=== PATIENT | female | born 1985 | race Caucasian/White ===

== ENCOUNTER 2016-11-29 21:58 | Emergency (ER) | payer BC ==
[~2016-11-29] VITALS: Ht 170.2 cm; Wt 101.6 kg
--- NOTE | ~2016-11-29 | EKG ---
[address] [address] ELECTROCARDIOGRAM REPORT Name: DC JACOBO Room #: DEP [facility]#: [id number] Admission: 11/29/16 Attend Phys: Discharge: 11/29/16 Date of : 81 Report #: [id number] THIS REPORT FOR: //name// [facility] ED Test Date: 2016-11-29 Test Time: 21:59:20 Pat Name: DC JACOBO Department: Room: Gender: F Pcb Designer: ALY : 1985 Requested By: Juan Francisco Wilde Order Number: [id number] MD: Ankush Lockett Measurements Intervals [place] Rate: 104 P: 52 MD: 158 QRS: 39 QRSD: 105 T: -10 QT: 355 QTc: 467 Interpretive Statements Sinus tachycardia Borderline T abnormalities, inferior leads No previous ECG available for comparison Electronically Signed On 11-30-2016 8:57:28 CDT by Ankush Lockett [email or web address] <ELECTRONICALLY SIGNED> By: Ankush Lockett MD, [facility] 11/30/16 [id number] [id number] Ankush Lockett MD, FACC /EPI
[~2016-11-29 21:58] MED LIST: APAP500 PO; LANOLIN HYDROUS28 GM TOP; NORCO 5-325 TA1 EACH PO; PRENATAL
[2016-11-29] MEDS ORDERED: NOHOMEMEDICATIONS (22:06)
[2016-11-29 22:10] LABS: HEMATOCRIT 41.4 % (37.0-47.0); HEMOGLOBIN 13.7 gm/dL (12.0-15.0); MCH 29.5 pg (26.0-34.0); MCHC 33.2 g/dL (28.0-37.0); MCV 88.8 fL (80.0-100.0); RBC 4.66 mil/uL (4.20-5.00); RDW 12.1 % (10.5-14.5); WBC 9.3 thou/uL (4.0-11.0)
[2016-11-29 22:18] LABS: CALCIUM 8.6 mg/dL (8.5-10.1); CREATININE 0.9 mg/dL (0.6-1.0); POTASSIUM 3.3 mmol/L (3.5-5.1)
[2016-11-29 22:58] VITALS: BP 121/67
== END 2016-11-29 23:27 | disposition home or self-care (01) ==
LOC: ER 21:58
PROVIDERS: Physician Assistant
DX: I47.1 Supraventricular tachycardia (principal); F17.210 Nicotine dependence, cigarettes, uncomplicated; F10.99 Alcohol use, unspecified with unspecified alcohol-induced disorder

== ENCOUNTER → 2016-12-10 | Outpatient (CLI) | payer BC ==
[~2016-12-10] MED LIST changes: +NOHOMEMEDICATIONS
--- NOTE | ~2016-12-10 | 2DMMODE ---
[facility] [employer] [place] [address] 2 D/M-MODE ECHOCARDIOGRAM Name: DONNELLDC NACHO Room #: REG [facility]#: [id number] Admission: 12/10/16 Attend Phys: Epi Gr Discharge: Date of : 81 Date of Service: 12/10/16 1440 Report #: [id number] THIS REPORT FOR: //name// APPROVED REPORT Study performed: 12/10/2016 12:12:10 EXAM: Comprehensive 2D, Doppler, and color-flow Echocardiogram Patient Location: Out-Patient Status: routine Other Information Study Quality: Good Indications Palpitations 2D Dimensions RVDd: 36.82 mm LVEF(%): 73.30 (>50%) IVSd: 9.30 (7-11mm) LVOT Diam: 19.96 (18-24mm) LVDd: 47.31 mm PWd: 7.72 (7-11mm) Ascending Ao: 28.39 (22-36mm) LVDs: 27.30 (25-40mm) Aortic Root: 28.32 mm Mathur's LVEF: 73.30 % Volumes Left Atrial Volume (Systole) Single Plane 4CH: 34.71 mL Single Plane 2CH: 37.51 mL LA ESV Index: 19.00 mL/m2 Aortic Valve AoV Peak Bert.: 1.45 m/s AO Peak Gr.: 8.45 mmHg LVOT Max P.20 mmHg LVOT Max V: 1.02 m/s BRITT Vmax: 2.20 cm2 Mitral Valve E/A Ratio: 2.2 MV Decel. Time: 231.44 ms MV E Max Bret.: 1.01 m/s MV A Bret.: 0.45 m/s MV PHT: 67.12 ms IVRT: 92.27 ms [facility] [place] [address] 2 D/M-MODE ECHOCARDIOGRAM Name: DC JACOBO Room #: REG [facility] [id number] Admission: 12/10/16 [facility]end Phys: [facility] Dis[facility]: Date of : 81 Date of Service: 12/10/16 1440 Report #: [id number] Pulmonary Vein P Vein S: 0.65 m/s P Vein A: 0.23 m/s P Vein D: 0.41 m/s P Vein A Dur.: 120.0 msec P Vein S/D Ratio: 1.59 Tricuspid Valve TR Peak Bret.: 2.36 m/s RAP Estimate: 5.00 mmHg TR Peak Gr.: 22.27 mmHg PA Pressure: 27.00 mmHg Left Ventricle The left ventricle is normal size. There is normal left ventricular wall thickness. The left ventricular systolic function is normal. The left ventricular ejection fraction is within the normal range. LVEF is 60-65%. The left ventricular diastolic function is normal. Right Ventricle The right ventricle is normal size. The right ventricular systolic function is normal. Atria The left atrium size is normal. The right atrium size is normal. Aortic Valve The aortic valve is normal in structure. No aortic regurgitation is present. There is no aortic valvular stenosis. Mitral Valve The mitral valve is normal in structure. Trace mitral regurgitation. No evidence of mitral valve stenosis. Tricuspid Valve The tricuspid valve is normal in structure. There is trace tricuspid regurgitation. The right atrial pressure is estimated at 5 mmHg. There is trace tricuspid regurgitation. The right atrial pressure is estimated at 5 mmHg. There is no pulmonary hypertension with an estimated PAP of 28 mmHg. Pulmonic Valve The pulmonary valve is normal in structure. There is no pulmonic valvular regurgitation. Great Vessels The aortic root is normal in size. The ascending aorta is normal in [address] [address] 2 D/M-MODE ECHOCARDIOGRAM Name: DC JACOBO Room #: REG [facility]#: [id number] Admission: 12/10/16 Attend Phys: Epi Gr Discharge: Date of : 81 Date of Service: 12/10/16 1440 Report #: [id number] size. IVC is normal in size and collapses >50% with inspiration. Pericardium There is no pericardial effusion. <Conclusion> The left ventricle is normal size. The left ventricular systolic function is normal. The left ventricular diastolic function is normal. The right ventricle is normal size. The left atrium size is normal. The right atrium size is normal. The aortic valve is normal in structure. Trace mitral regurgitation. There is no pericardial effusion. <ELECTRONICALLY SIGNED> By: Matt Levin MD 12/10/16 1440 1440 1440 Matt Levin MD /INF
== END ==
LOC: CV 11:38
DX: R00.2 Palpitations (principal)

== ENCOUNTER → 2016-12-20 | Outpatient (CLI) | payer BC ==
[~2016-12-20] VITALS: Ht 170.2 cm; Wt 101.6 kg
[~2016-12-20] MED LIST changes: +TOPROL XL25 MG PO; +XARELTO20 MG PO
[2016-12-20 07:11] VITALS: BP 112/75
[2016-12-20 07:40] LABS: ABSOLUTE NEUTROPHILS 3.8 thou/uL (1.4-8.2); BASOPHILS 0.5 % (0.0-2.0); EOSINOPHILS 5.1 % (0.0-3.0); HEMATOCRIT 37.7 % (37.0-47.0); HEMOGLOBIN 12.7 gm/dL (12.0-15.0); LYMPHOCYTES 28.1 % (24.0-44.0); MCH 29.8 pg (26.0-34.0); MCHC 33.7 g/dL (28.0-37.0); MCV 88.4 fL (80.0-100.0); MONOCYTES 6.8 % (1.0-8.0); PLATELET COUNT 200 thou/uL (150-400); POLYS 59.5 % (36.0-66.0); RBC 4.27 mil/uL (4.20-5.00); RDW 12.3 % (10.5-14.5); WBC 6.5 thou/uL (4.0-11.0)
[2016-12-20 07:52] LABS: MANUAL DIFF NO
[2016-12-20 07:53] LABS: CALCIUM 8.4 mg/dL (8.5-10.1); CREATININE 0.7 mg/dL (0.6-1.0); POTASSIUM 3.7 mmol/L (3.5-5.1)
[2016-12-20 07:55] LABS: APTT 25.4 Seconds (24.5-32.8); PROTIME 9.9 Seconds (9.3-11.4)
[2016-12-20 07:57] LABS: ALBUMIN 3.3 g/dL (3.4-5.0); TOTAL BILIRUBIN 0.4 mg/dL (<0.1-1.0); TOTAL PROTEIN 6.7 g/dL (6.4-8.2)
== END | disposition home or self-care (01) ==
LOC: CATH 06:30
PROVIDERS: Internal Medicine Cardiovascular Disease
DX: I47.1 Supraventricular tachycardia (principal); Z72.0 Tobacco use; I49.9 Cardiac arrhythmia, unspecified; G43.909 Migraine, unspecified, not intractable, without status migrainosus
CPT/HCPCS: 62110; 62900; 70005

== ENCOUNTER 2019-01-19 09:57 | Emergency (ER) | payer BC ==
[~2019-01-19] VITALS: Ht 172.7 cm; Wt 102.1 kg
[2019-01-19 10:36] LABS: ABSOLUTE NEUTROPHILS 5.7 thou/uL (1.4-8.2); BASOPHILS 0.9 % (0.0-2.0); EOSINOPHILS 2.5 % (0.0-3.0); HEMATOCRIT 42.6 % (37.0-47.0); HEMOGLOBIN 14.2 gm/dL (12.0-15.0); LYMPHOCYTES 23.6 % (24.0-44.0); MCH 29.8 pg (26.0-34.0); MCHC 33.2 g/dL (28.0-37.0); MCV 89.7 fL (80.0-100.0); MONOCYTES 5.1 % (1.0-8.0); PLATELET COUNT 246 thou/uL (150-400); POLYS 67.9 % (36.0-66.0); RBC 4.75 mil/uL (4.20-5.00); RDW 12.5 % (10.5-14.5); WBC 8.5 thou/uL (4.0-11.0)
[2019-01-19] MEDS ORDERED: NORETHINDRONE0.35 MG PO (10:37)
[2019-01-19 10:40] LABS: ANION GAP 9 mmol/L (7-16); BUN 8 mg/dL (7-18); CALCIUM 9.2 mg/dL (8.5-10.1); CHLORIDE 102 mmol/L (98-107); CO2 26 mmol/L (21-32); CREATININE 0.8 mg/dL (0.6-1.0); GLUCOSE 105 mg/dL (74-106); SODIUM 137 mmol/L (136-145)
[2019-01-19 10:46] LABS: ALBUMIN 3.8 g/dL (3.4-5.0); DIRECT BILIRUBIN < 0.1 mg/dL (<0.1-0.3); LIPASE 68 U/L (73-393); SGOT 14 U/L (15-37); SGPT 27 U/L (30-65); TOTAL BILIRUBIN 0.5 mg/dL (<0.1-1.0); TOTAL PROTEIN 7.9 g/dL (6.4-8.2)
[2019-01-19] MEDS ORDERED: BENTYL 20 MG TA20 M1 PO (12:30)
[2019-01-19 12:40] VITALS: BP 108/67
== END 2019-01-19 12:40 | disposition home or self-care (01) ==
LOC: ER 09:57
PROVIDERS: Emergency Medicine
DX: R10.30 Lower abdominal pain, unspecified (principal); G43.909 Migraine, unspecified, not intractable, without status migrainosus; F17.210 Nicotine dependence, cigarettes, uncomplicated; Z88.8 Allergy status to other drugs, medicaments and biological substances

== ENCOUNTER 2019-10-19 19:16 | Emergency (ER) | payer OTHER ==
[~2019-10-19] VITALS: Ht 167.6 cm; Wt 102.1 kg
[~2019-10-19 19:16] MED LIST changes: +BENTYL 20 MG TA20 M1 PO; +NORETHINDRONE0.35 MG PO
[2019-10-19 19:25] VITALS: BP 132/81
[2019-10-19] MEDS ORDERED: IBUPROFEN 800800 M1 PO (19:40)
== END 2019-10-19 20:13 | disposition home or self-care (01) ==
LOC: ER 19:16
DX: S93.601A Unspecified sprain of right foot, initial encounter (principal); G43.909 Migraine, unspecified, not intractable, without status migrainosus; F17.210 Nicotine dependence, cigarettes, uncomplicated; Z79.899 Other long term (current) drug therapy; X58.XXXA Exposure to other specified factors, initial encounter; Y93.01 Activity, walking, marching and hiking; Y92.89 Other specified places as the place of occurrence of the external cause; Y99.8 Other external cause status

== ENCOUNTER → 2020-03-18 | Outpatient (CLI) | payer BC ==
[~2020-03-18] MED LIST changes: +IBUPROFEN 800800 M1 PO
== END ==
LOC: SJCVCIMAG 11:02
PROVIDERS: ATTEND Internal Medicine Cardiovascular Disease
DX: I07.1 Rheumatic tricuspid insufficiency (principal); I27.20 Pulmonary hypertension, unspecified

== ENCOUNTER 2021-02-09 09:36 | Emergency (ER) | payer BC ==
[~2021-02-09] VITALS: Ht 170.2 cm; Wt 95.3 kg
[2021-02-09] MEDS ORDERED: HYDROCODON-ACE1 EAC7 PO (09:45)
[2021-02-09] MEDS ORDERED: ACYCLOVIR 400400 MG PO (09:45)
[2021-02-09 10:47] VITALS: BP 115/93
[2021-02-11] MEDS ORDERED: AMOXICILLIN500 M1 PO (11:54)
== END 2021-02-09 10:47 | disposition home or self-care (01) ==
LOC: ER 09:36
DX: J02.9 Acute pharyngitis, unspecified (principal); F17.210 Nicotine dependence, cigarettes, uncomplicated; Z79.2 Long term (current) use of antibiotics; Z79.899 Other long term (current) drug therapy; Z91.048 Other nonmedicinal substance allergy status